=== PATIENT | female | born 1995 | race African-American/Black ===

== ENCOUNTER 2019-09-24 11:46 | Emergency (ER) | payer OTHER, SELFPAY ==
[2019-09-24 11:50] VITALS: BP 145/86; PULSE 90; RESP 18; TEMP 36.2; O2SAT 100
--- NOTE | 2019-09-24 12:34 | ED.DENTAL ---
HPI - Dental/Oral General Chief complaint: Dental/Oral Stated complaint: toothache Time Seen by Provider: 09/24/19 12:02 Source: patient Mode of arrival: ambulatory Limitations: no limitations History of Present Illness HPI Narrative: This is a 24-year-old female that presents to the emergency department for toothache that is been intermittent for the last couple of months. Reports worsening over the last couple of days. Reports she has a wisdom tooth that has been trying to come in and is painful. She has been taking Tylenol and ibuprofen with little relief. Denies fever, erythema or edema. Location: Tooth # (32) Related Data Home Medications Medication Instructions Recorded Confirmed Lacto.acidophilus-Bif.animalis 1 cap PO DAILY 03/31/19 03/31/19 [Daily Probiotic] Allergies Allergy/AdvReac Type Severity Reaction Status Date / Time No Known Allergies Allergy Unverified 03/31/19 06:04 Review of Systems Review of Systems: Narrative: CONSTITUTIONAL: Denies fever ENT: Reports dentalgia All systems reviewed & are unremarkable except as noted in HPI and below PMFSH Past Medical History Medical History (Updated 09/24/19 @ 12:36 by Parisa Skelton PA-C) No active medical problems Social History Social History (Updated 09/24/19 @ 12:35 by Parisa Skelton PA-C) Smoking status: Never smoker Substance use: never Gender identity (if verbalized by the patient): Female Exam Narrative: Exam Narrative: GENERAL: Well-appearing, well-nourished, and in no acute distress. HEAD: Normocephalic, atraumatic. EYES: EOMI. ENT: Mucous membranes moist. Oropharynx without tonsillar hypertrophy exudate or other lesions. No trismus. Tooth #32 tender to palpation without surrounding erythema or edema to suggest abscess NECK: Supple. No adenopathy or masses. CHEST: Airway patent EXTREMITIES: Normal range of motion. No edema. SKIN: Warm, dry, no rash. NEURO: No focal deficits. Alert and oriented x3. PSYCH: Normal mood and affect Course Vital Signs Vital signs: Vital Signs Temperature 97.2 F L 09/24/19 11:50 Pulse Rate 90 09/24/19 11:50 Respiratory Rate 18 09/24/19 11:50 Blood Pressure 145/86 H 09/24/19 11:50 Pulse Oximetry 100 09/24/19 11:50 Temperature 97.2 F L 09/24/19 11:50 Pulse Rate 90 09/24/19 11:50 Respiratory Rate 18 09/24/19 11:50 Blood Pressure 145/86 H 09/24/19 11:50 Pulse Oximetry 100 09/24/19 11:50 MDM - Dental/Oral MDM Narrative Medical decision making narrative: Patient presents the emergency department for toothache. She is afebrile and nontoxic-appearing. No signs of abscess on exam. Given a dose pain medication in the ED. She will be started on oral antibiotics. She was instructed to follow-up with a dentist. She was given warnings to return to the ER Critical Care Time Critical Care Time Critical Care Time: No Discharge Plan Discharge Clinical Impression: Toothache Patient Disposition: Home, Self-Care Condition: Stable Instructions: Antibiotic Form, Toothache (ED) Additional Instructions: Return to the Emergency Department if you experience fever >101, increasing swelling and redness of your tooth, or any other symptoms that are concerning to you Take antibiotic as prescribed. Tylenol or Ibuprofen as needed for pain. You can apply a dab of clove oil to a Qtip and apply to the tooth to help numb the area Follow up with your dentist Prescriptions: New amoxicillin-pot clavulanate 875-125 mg tablet 1 tablet PO Q12H 7 Days Qty: 14 RF: 0 No Action Daily Probiotic 2.5 billion cell Capsule 1 cap PO DAILY RF: 0 naproxen [Naprosyn] 500 mg tablet 500 mg PO BID PRN (Reason: pain) Qty: 30 RF: 0 Follow-up/Referrals: PHYSICIAN,JOB PRESS OPERATOR [Primary Care Provider] -
== END 2019-09-24 12:50 | disposition home or self-care (01) ==
PROVIDERS: Emergency Provider Emergency Medicine
DX: K08.89 Other specified disorders of teeth and supporting structures (principal)
CPT/HCPCS: 99283

== ENCOUNTER 2019-11-09 10:56 | Emergency (ER) | payer OTHER, SELFPAY ==
[2019-11-09 11:10] VITALS: BP 131/66; PULSE 97; RESP 18; TEMP 36.7; O2SAT 99
--- NOTE | 2019-11-09 11:48 | ED.GENADULT ---
HPI - General Adult General Chief complaint: Dental/Oral Stated complaint: toothache Time Seen by Provider: 11/09/19 11:18 Source: patient Mode of arrival: ambulatory Limitations: no limitations History of Present Illness HPI narrative: 24-year-old female patient presents to the [facility] with complaints of right lower dental pain for the past couple of weeks. Patient states she was out of town in [place] and was seen at the ER there and they did give her some penicillin however she states that she lost the medication and said had some leftover Flagyl that she tried to take. Patient states that she finished the antibiotics but continues have pain. Patient states she does have a dental appointment scheduled for November 20 but continues to have increasing pain. Patient states she has tried qtxa-lvr-cnsmmle medication without relief. Denies any fevers, chest pain or shortness of breath. Denies any abdominal pain, nausea, vomiting or diarrhea. Related Data Home Medications Medication Instructions Recorded Confirmed Lacto.acidophilus-Bif.animalis 1 cap PO DAILY 03/31/19 03/31/19 [Daily Probiotic] Allergies Allergy/AdvReac Type Severity Reaction Status Date / Time No Known Allergies Allergy Verified 11/09/19 11:30 Review of Systems Review of Systems: Narrative: CONSTITUTIONAL: Denies fever, chills, or sweats. EYES: Denies visual changes, redness, or discharge. ENT: Denies rhinorrhea, congestion, sore throat, or otalgia. Positive right lower dental pain x2 weeks CARDIOVASCULAR: Denies chest pain, palpitations, or edema. RESPIRATORY: Denies cough or dyspnea. GASTROINTESTINAL: Denies abdominal pain, nausea, vomiting, or diarrhea. GENITOURINARY: Denies dysuria or hematuria. SKIN: Denies rash or itching. MUSCULOSKELETAL: Denies back pain, joint pain, or myalgia. NEUROLOGIC: Denies headache, numbness, or weakness. PSYCHIATRIC: Denies anxiety or depression. [facility] Past Medical History Medical History No active medical problems Social History Social History Smoking status: Never smoker Substance use: never Gender identity (if verbalized by the patient): Female Comments At the time of my signature I agree with nursing past medical history, surgical, social, and family history. There is no relevant family history pertinent to the presenting complaint. Exam Narrative: Exam Narrative: GENERAL: Well-appearing, well-nourished, and in no acute distress. HEAD: Normocephalic, atraumatic. EYES: PERRLA and EOMI. ENT: Nares clear, no rhinorrhea or epistaxis. Mucous membranes moist. Patient has swelling to the back molar on the lower right side. There is tenderness noted on palpation. No obvious abscess is noted. No swelling to the cheek. There is no discharge present NECK: Supple. No lymphadenopathy CHEST: Clear to auscultation. No respiratory distress. HEART: Regular rate and rhythm. No murmur heard. Normal peripheral pulses. ABDOMEN: Soft, nontender, nondistended, normal active bowel sounds. EXTREMITIES: Normal range of motion. No edema. SKIN: Warm, dry, no rash. NEURO: No focal deficits. Alert and oriented x3. Course Reevaluation(s) Reevaluation #1: Reevaluated patient. Patient states she is feeling much better after receiving the pain medication. Discussed with patient we will discharge her home with some pain medication along with the antibiotic for the infection she needs to follow-up with her dentist on November 20 as scheduled. Patient verbalized understanding denies any other questions or concerns Date: 11/09/19 Time: 12:40 Vital Signs Vital signs: Vital Signs Temperature 36.7 C 11/09/19 11:10 Pulse Rate 97 11/09/19 11:10 Respiratory Rate 18 11/09/19 11:10 Blood Pressure 131/66 11/09/19 11:10 Pulse Oximetry 99 11/09/19 11:10 Temperature 36.7 C 11/09/19 11:10 Pulse Rate 66 0
[2019-11-09] MEDS: KETOROLAC (*BKC) 60 MG/2 ML VIAL IM (12:07)
[2019-11-09] MEDS: CLINDAMYCIN HCL 150 MG CAP 300 MG PO (12:07)
[2019-11-09 12:52] VITALS: BP 115/85; PULSE 66; RESP 16; O2SAT 100
== END 2019-11-09 12:53 | disposition home or self-care (01) ==
PROVIDERS: Emergency Provider Nurse Practitioner Family
DX: K02.9 Dental caries, unspecified (principal); K08.89 Other specified disorders of teeth and supporting structures
CPT/HCPCS: 96372; 99283; A9270; J1885

== ENCOUNTER 2019-11-15 12:00 | Emergency (ER) | payer OTHER, SELFPAY ==
[2019-11-15 12:20] VITALS: BP 128/71; PULSE 105; RESP 20; TEMP 36.7; O2SAT 100
[2019-11-15] MEDS: KETOROLAC (*BKC) 60 MG/2 ML VIAL IM (13:13)
--- NOTE | 2019-11-15 13:55 | ED.GENADULT ---
HPI - General Adult General Chief complaint: Dental/Oral Stated complaint: Tooth Pain Time Seen by Provider: 11/15/19 12:36 Source: patient Mode of arrival: ambulatory Limitations: no limitations History of Present Illness HPI narrative: Patient is a 24-year-old female who presents with right upper posterior dental pain is been having the pain off and off for over a week has an oral surgeon she is going to see with a decayed right posterior lower molar was seen in the emergency department and given medications completed them in the last 2 days and continues to have pain denies fever chills or URI symptoms and is otherwise resting in the room in no distress upon arrival Related Data Allergies Allergy/AdvReac Type Severity Reaction Status Date / Time No Known Allergies Allergy Verified 11/15/19 12:36 Review of Systems Review of Systems: All systems reviewed & are unremarkable except as noted in HPI and below PMFSH Past Medical History Medical History No active medical problems Social History Social History Smoking status: Never smoker Substance use: never Gender identity (if verbalized by the patient): Female Exam Narrative: Exam Narrative: GENERAL: Well-appearing, well-nourished, and in no acute distress. HEAD: Normocephalic, atraumatic. EYES: PERRLA and EOMI. ENT: Nares clear, no rhinorrhea or epistaxis. Mucous membranes moist. Oropharynx without tonsillar hypertrophy exudate or other lesions. Decay of the right posterior lower molar without any erythema. Uvula midline no trismus or drooling. Floor of the mouth soft NECK: Supple. No adenopathy or masses. No carotid bruits or JVD CHEST: Clear to auscultation. No respiratory distress. No wheezes rales or rhonchi HEART: Regular rate and rhythm. No murmur heard. EXTREMITIES: Normal range of motion. No edema. SKIN: Warm, dry, no rash. NEURO: No focal deficits. Alert and oriented x3. Cranial nerves II through XII grossly intact. PSYCH: Normal mood and affect. Course Course Emergency Course: Patient in the room in no distress aware of case findings treatment plan and diagnosis given pain medicine in the emergency Vital Signs Vital signs: Vital Signs Temperature 98.1 F 11/15/19 12:20 Pulse Rate 105 H 11/15/19 12:20 Respiratory Rate 11/15/19 12:20 Blood Pressure 128/71 11/15/19 12:20 Pulse Oximetry 100 11/15/19 12:20 Temperature 98.1 F 11/15/19 12:20 Pulse Rate 105 H 11/15/19 12:20 Respiratory Rate 11/15/19 12:20 Blood Pressure 128/71 11/15/19 12:20 Pulse Oximetry 100 11/15/19 12:20 Medical Decision Making MDM Narrative Medical decision making narrative: Patients pain and complaint coupled with physical findings are consisting with dentalgia. There are no focal signs of space occupying lesions that are compromising to the airway. The floor of the mouth is soft with no signs of Ludwigs Angina. Patient is without trismus or drooling and able to swallow secretions. Patient is felt appropriate for discharge home with dental follow up. Vital Signs Vital Signs: Vital Signs Temperature 98.1 F 11/15/19 12:20 Pulse Rate 105 H 11/15/19 12:20 Respiratory Rate 11/15/19 12:20 Blood Pressure 128/71 11/15/19 12:20 Pulse Oximetry 100 11/15/19 12:20 Temperature 98.1 F 11/15/19 12:20 Pulse Rate 105 H 11/15/19 12:20 Respiratory Rate 11/15/19 12:20 Blood Pressure 128/71 11/15/19 12:20 Pulse Oximetry 100 11/15/19 12:20 Discharge Plan Discharge Clinical Impression: Dental caries Patient Disposition: Home, Self-Care Condition: Stable Instructions: Antibiotic Form, Toothache (ED) Additional Instructions: follow up with dentistry within 1-2 days to set up for reevaluation. Go to ER for shortness of breath, difficulty breathing, chest pain, fever/chills, weakness
== END 2019-11-15 14:04 | disposition home or self-care (01) ==
PROVIDERS: Emergency Provider Emergency Medicine
DX: K02.9 Dental caries, unspecified (principal)
CPT/HCPCS: 96372; 99283; A9270; J1885

== ENCOUNTER 2021-01-26 00:34 | Emergency (ER) | payer OTHER, SELFPAY ==
[2021-01-26 00:35] VITALS: BP 120/74; PULSE 83; RESP 15; TEMP 36.6; O2SAT 100
[2021-01-26 01:26] LABS: Basophils Percent Auto 0.3 % (0.2-1.2); Eosinophils Percent Auto 0.6 % (0-4.4); Immature Granulocyte Absolute 0.01 K/mm3 (0.00-0.031); Immature Granulocyte Percent A 0.2 % (0-0.5); Lymphocytes Absolute Auto 2.08 K/mm3 (0.9-3.2); Lymphocytes Percent Auto 32.8 % (18.3-44.2); Mean Corpuscular HGB Conc 33.3 g/dl (32-36); Mean Corpuscular Hemoglobin 30.6 pg (26-34); Mean Corpuscular Volume 91.8 fl (80-100); Mean Platelet Volume 11.1 fl (7.4-10.4); Monocytes Absolute Auto 0.5 K/mm3 (0.1-0.6); Monocytes Percent Auto 7.6 % (2.6-8.5); Neutrophils Absolute Auto 3.7 K/mm3 (1.3-6.7); Neutrophils Percent Auto 58.5 % (45.5-73.1); Platelet Count Result 186 k/mm3 (150-375); Red Blood Count 4.25 M/mm3 (4.2-5.4); Red Cell Distribution Width 12.6 % (11.5-14.5); White Blood Count 6.4 K/mm3 (4.5-10.0)
[2021-01-26 01:33] LABS: Add Urine Microscopic? YES; Appearance Urine Clear (Clear); Bacteria Urine Trace /hpf; Bilirubin Urine Negative (Negative); Blood Urine Negative (Negative); Color Urine Yellow (Yellow); Glucose Urine UA Negative (Negative); Ketones Urine Trace mg/dL (Negative); Leukocyte Esterase Ur 1+ LEU/UL (Negative); Mucus Urine Few /lpf; Nitrate Urine Negative (Negative); Protein Urine 1+ mg/dL (Negative); RBC Urine 0-2 /hpf (0-2); Squamous Epithelial Cell Urine Moderate /hpf (Few); WBC Urine 0-3 /hpf
--- NOTE | 2021-01-26 01:42 | ED.ABDPAIN ---
HPI - Abdominal Pain General Chief Complaint: Abdominal Pain Stated Complaint: abd pain Time Seen by Provider: 01/26/21 01:41 Source: patient Mode of arrival: ambulatory Limitations: no limitations History of Present Illness HPI narrative: Patient is a 25-year-old female complaining of lower abdominal pain, 7 out of 10, accompanied by nausea vomiting and on and off constipation for the past month and a half, currently does not have any pain or having any nausea. Patient denies any chest pain, shortness of breath, fever, chills or urinary symptoms. Patient states that her mother has Crohn's disease. MD elicited complaint: abdominal pain Related Data Allergies Allergy/AdvReac Type Severity Reaction Status Date / Time No Known Allergies Allergy Verified 01/26/21 01:30 Review of Systems Review of Systems: All systems reviewed & are unremarkable except as noted in HPI and below Constitutional: Constitutional: Denies body ache(s), Denies chills, Denies excessive sweating, Denies fatigue, Denies fever(s), Denies headache(s), Denies lethargy, Denies malaise, Denies weakness and Denies weight loss Eyes: Eyes: Denies blurry vision, Denies change in vision and Denies loss of vision ENT: Denies dizziness, Denies ear discharge, Denies headache(s), Denies lip swelling, Denies epistaxis, Denies nasal congestion, Denies neck pain, Denies throat swelling and Denies tongue swelling Cardiovascular: Cardiovascular: Denies chest pain, Denies chest pain at rest, Denies chest pain with activity, Denies diaphoresis, Denies rapid heart rate, Denies edema, Denies irregular heart rhythm, Denies lightheadedness, Denies palpitations, Denies dyspnea and Denies dyspnea on exertion Respiratory: Respiratory: Denies chest congestion, Denies cough, Denies hemoptysis, Denies dyspnea and Denies dyspnea on exertion Gastrointestinal: Gastrointestinal: Denies melena, Denies hematochezia, Denies diarrhea and Denies hematemesis Musculoskeletal: Musculoskeletal: Denies abnormal gait, Denies deformity, Denies joint swelling, Denies limited range of motion, Denies neck pain and Denies numbness Neurologic: Denies Abnormal speech present, Denies abnormal gait, Denies confusion, Denies dizziness, Denies headache(s), Denies focal weakness, Denies loss of vision, Denies numbness, Denies Other visual disturbances, Denies Sensory deficit (Neuro) and Denies weakness Psychiatric: Psychiatric: Denies confusion, Denies depression, Denies auditory hallucinations, Denies homicidal ideation and Denies suicidal ideation Endocrine: Endocrine: Denies cold intolerance, Denies excessive sweating, Denies fatigue, Denies heat intolerance and Denies palpitations Hematologic/Lymphatic: Hematologic/Lymphatic: Denies easy bleeding and Denies easy bruising Allergic/Immunologic: Allergic/Immunologic: Denies lip swelling, Denies throat swelling and Denies tongue swelling PMFSH Past Medical History Medical History (Updated 01/26/21 @ 02:12 by Saran Sutton MD) No active medical problems Social History Social History Smoking status: Never smoker Substance use: never Gender identity (if verbalized by the patient): Female Comments Past medical history: None Family history: Crohn's Social history: Non-smoker no EtOH or drug use Exam Const: General: cooperative, healthy appearing, comfortable, no acute distress, well developed, alert and awake; No confusion Orientation/consciousness: oriented to person, oriented to place, oriented to time, patient oriented x3 and No confusion Limitations: no limitations HENMT: Head: normal to inspection, normocephalic and atraumatic Ears: hearing grossly normal bilaterally, TM normal on the right and TM normal on the left General nose exam: Normal external nose present, Normal nares present and No nasal discharge present Face and sinus: normal facial exam Mouth: Yes Normal oral and palatal m
[2021-01-26 01:47] LABS: Alanine Aminotransferase 16 U/L (4-35); Albumin Level 4.9 g/dL (3.5-5.1); Alkaline Phosphatase 89 U/L (38-126); Anion Gap 8 mmol/L (8-16); Aspartate Amino Transferase 37 U/L (14-36); Bilirubin,Total 0.4 mg/dL (0.2-1.3); Blood Urea Nitrogen 16 mg/dL (7-17); Calcium 9.9 mg/dL (8.4-10.2); Carbon Dioxide 29 mmol/L (22-30); Chloride 103 mmol/L (98-107); Estimated Glomerular Filt Rate > 60; Glucose 99 mg/dL (65-110); Lipase 54 U/L (23-300); Potassium 3.8 mmol/L (3.4-5.0); Sodium 140 mmol/L (137-145)
[2021-01-26 02:24] VITALS: BP 126/82; PULSE 80; RESP 16; O2SAT 100
== END 2021-01-26 02:23 | disposition home or self-care (01) ==
PROVIDERS: Emergency Provider Emergency Medicine
DX: R10.30 Lower abdominal pain, unspecified (principal)
CPT/HCPCS: 36415; 80053; 81001; 81025; 83690; 85025; 99283

== ENCOUNTER 2023-12-24 16:03 | Emergency (ER) | payer OTHER, SELFPAY ==
--- NOTE | ~2023-12-24 | XR_ITS ---
EXAM: XR humerus RT DATE: 12/24/2023 16:51 HISTORY: fall, bruising . COMPARISON: CT right upper extremity and x-ray right shoulder 12/21/2016. FINDINGS: Normal mineralization. No fracture or dislocation. Mild bowing deformity of the distal hum erus which is a chronic finding. No lytic or blastic lesion. Joint spaces and physes are maintained. No erosion or periosteal change. Soft tissues within normal limits. IMPRESSION: No acute osseous finding in the right humerus. Reviewed, dictated and finalized at location K.
--- NOTE | ~2023-12-24 | CT_ITS ---
EXAMINATION: CT brain wo con DATE: 12/24/2023 17:00 INDICATION: hi, lac to forehead . TECHNIQUE: Computed tomography (CT) of the head was performed without intravenous contrast. The mA wa s adjusted according to patient size. Iterative reconstruction technique was employed. The dose-lengt h product was 605.33 mGy-cm. COMPARISON: None. FINDINGS: No acute intracranial hemorrhage or extra-axial fluid collection. No hydrocephalus, mass, or herniation. No acute ischemic infarct. Unremarkable dural venous sinus attenuation. No acute osseous abnormality. Left forehead laceration and contusion. Mild ethmoid and sphenoid mucosal thickening, the remaining aerated spaces are clear. IMPRESSION: No acute intracranial process. Reviewed, dictated and finalized at location K.
--- NOTE | ~2023-12-24 | CT_ITS ---
EXAMINATION: CT cervical spine wo con DATE: 12/24/2023 17:00 INDICATION: Fall with head injury TECHNIQUE: Computed tomography (CT) of the cervical spine was performed without intravenous contrast. Automated exposure control and iterative reconstruction technique were employed. The dose-length pro duct was 450.91 mGy-cm. COMPARISON: None FINDINGS: There is reversal of the normal cervical lordosis which is likely positional. No spondylolisthesis or facet subluxation. Vertebral body and disc heights are normal. Cervical facet and uncovertebral join ts are normal. No central canal or neural foraminal stenosis. Cervical soft tissues are unremarkable. Visualized apices of lungs are clear. IMPRESSION: 1. Likely positional reversal of the normal cervical lordosis. No acute osseous abnormality. Reviewed, dictated and finalized at location A.
[2023-12-24 16:04] VITALS: BP 147/94; PULSE 120; RESP 18; TEMP 36.7; O2SAT 98
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
[2023-12-24] MEDS: ACETAMINOPHEN 500 MG TABLET 1000 MG PO (16:41)
[2023-12-24] MEDS: TETANUS,DIPHTHERIA,AC PERTUSSIS ADULT (0.5 ML) BOOSTRIX IM (16:42)
--- NOTE | 2023-12-24 16:46 | PC.NURSE ---
Pt given Boostrix vaccination handout
[2023-12-24 17:35] VITALS: BP 148/87; PULSE 111; RESP 18; O2SAT 99
== END 2023-12-24 18:12 | disposition home or self-care (01) ==
LOC: ANHED 18:03
PROVIDERS: Emergency Provider Physician Assistant
DX: S01.81XA Laceration without foreign body of other part of head, initial encounter (principal); S40.021A Contusion of right upper arm, initial encounter; X58.XXXA Exposure to other specified factors, initial encounter
CPT/HCPCS: 12013; 70450; 72125; 73060; 90471; 90715; 99284; A9270

== ENCOUNTER 2024-12-03 15:19 | Outpatient (CLI) | payer OTHER, SELFPAY ==
--- OUTSIDE RECORDS SUMMARY | 2024-12-03 15:24 | XMS_ITS | Clinical Summary ---
Author Organization [facility] Address [address] [place] [id number] Care Team Providers Care [employer] Name Role Phone Unavailable Primary Care Provider Unavailabl e Allergies No known active allergies Medications No known medications Social History Tobacco Use Types Packs/Day Years Used Date Smoking Tobacco: Some Days Smokeless Tobacco: Never Alcohol Use Standard Drinks/Week Comments Yes 0 (1 standard drink = 0.6 oz pur e alcohol) Alcohol Use Answer Date Recorded Frequency of Alcohol Consumption Not on file 01/26/2020 Average Number of Drinks Not on file 020 Frequency of Binge Drinking Not on file 01/06 Alcohol Use Status Yes 01/26/2020 Average alcohol consumption Not on file 01/06 Comments Unknown Sex and Gender Information Value Date Recorded Sex Assigned at Not on file Legal Sex Female 10:52 PM CDT Gender Identity Not on file Sexual Orientation Not on file Last Filed Vital Signs Vital Sign Reading Time Taken Comments Blood Pressure 127/87 10/25/2019 10:54 PM CDT Pulse 90 10/25/2019 10:54 PM CDT Temperature 36.3 C (97.3 F) 10/25/2019 10:54 PM CDT Respiratory Rate 16 10/25/2019 10:54 PM CDT Oxygen Saturation 99% 10/25/2019 10:54 PM CDT Inhaled Oxygen Concentration - - Weight 82.1 kg (181 lb) 10/25/2019 10:54 PM CDT Height 160 cm (5' 3) 10/25/2019 10:54 PM CDT Body Mass Index 32.06 10/25/2019 10:54 PM CDT Plan of Treatment Health Maintenance Due Date Last Done Comments HIV Screening 1997 Hepatitis C Screening ages 1 8 to 79 once 1997 MMR VACCINES (1 of 1 - Stand yaniv series) 1998 YEARLY WELLNESS EXAM 2000 DTaP/Tdap/Td Vaccines (1 - Tdap) 2004 DEPRESSION SCREENING 2009 Varicella Vaccine (1 of 2 - 13+ 2-dose series) 2010 HPV VACCINES (1 - 3-dose series) 2012 ADULT TETANUS 2016 HEPATITIS B VACCINES (1 of 3 - 19+ 3-dose series) 2016 Pneumococcal Vaccine: Peds t o 50 & At-Risk Patients (1 of 2 - PCV) 2016 CERVICAL CANCER SCREENING 2018 COVID-19 Immunization (1 - 2 season) 2024 Influenza Vaccine 12/05/2024 Zoster Vaccine (Recombinant Vaccine) (1 of 2) 07/17/2047 HEPATITIS A VACCINES Aged Out No long er eligible based on patient's age to complete this topic HIB VACCINES Aged Out No longer eligi ble based on patient's age to complete this topic IPV VACCINES Aged Out No longer eligi ble based on patient's age to complete this topic MENINGOCOCCAL VACCINE Aged Out No zaynab lo eligible based on patient's age to complete this topic Meningococcal B Vaccine Aged Out No l onger eligible based on patient's age to complete this topic ROTAVIRUS VACCINES Aged Out No longer eligible based on patient's age to complete this topic Insurance [facility]
[2024-12-03 15:43] LABS: Hematocrit 39.6 % (37.0-47.0); Hemoglobin 12.9 g/dL (12.0-15.0); Immature Granulocyte Percent A 0.2 % (0-0.5); Lymphocytes Absolute Auto 1.37 K/mm3 (0.9-3.2); Mean Corpuscular HGB Conc 32.6 g/dl (32-36); Mean Corpuscular Hemoglobin 29.4 pg (26-34); Mean Corpuscular Volume 90.2 fl (80-100); Nucleated Red Blood Cells Absolute Auto 0.000 K/mm3 (0.0-0.012); Nucleated Red Blood Cells Perc 0.0 % (0.0-0.2); Platelet Count Result 209 k/mm3 (150-375); Red Blood Count 4.39 M/mm3 (4.2-5.4); White Blood Count 5.0 K/mm3 (4.5-10.0)
[2024-12-03 16:32] LABS: Thyroid Stimulating Hormone Reflex 1.810 uIU/mL (0.465-4.68)
[2024-12-03 16:46] LABS: Alanine Aminotransferase 21 U/L (6-35); Albumin Level 4.2 g/dL (3.5-5.1); Alkaline Phosphatase 108 U/L (38-126); Anion Gap 5 mmol/L (4-12); Aspartate Amino Transferase 31 U/L (14-36); Bilirubin,Total 0.5 mg/dL (0.2-1.3); Blood Urea Nitrogen 12 mg/dL (7-17); Calcium 9.5 mg/dL (8.4-10.2); Carbon Dioxide 27 mmol/L (22-30); Chloride 104 mmol/L (98-107); Estimated Glomerular Filt Rate > 60; Glucose 93 mg/dL (65-110); Potassium 4.2 mmol/L (3.4-5.0); Sodium 136 mmol/L (137-145); Total Protein 7.6 g/dL (6.3-8.2)
[2024-12-03 18:20] LABS: Hemoglobin A1C 5.4 % (<5.7)
[2024-12-04 07:09] LABS: FSH 6.5 mIU/mL (.)
[2024-12-06 21:07] LABS: Free Testosterone (Direct) 1.7 pg/mL (0.0-4.2)
== END 2024-12-03 15:20 | disposition home or self-care (01) ==
LOC: ANHLAB 15:21
PROVIDERS: PCP Internal Medicine; Visit Provider Nurse Practitioner Obstetrics & Gynecology
DX: N93.9 Abnormal uterine and vaginal bleeding, unspecified (principal)
CPT/HCPCS: 36415; 80053; 82306; 83001; 83036; 84402; 84403; 84443; 85025